=== PATIENT | male | born 1945 | race Caucasian/White ===

== ENCOUNTER 2017-02-28 08:15 | Emergency (ER) | payer MEDICARE, OTHER ==
[2017-02-28] MEDS ORDERED: ONDANSETRON HCL 4 MG/2 ML VIAL ONE (08:54)
[2017-02-28] MEDS ORDERED: KETOROLAC TROMETHAMINE 30 MG/ML VIAL ONE (08:54)
[2017-02-28 09:01] LABS: BASOPHIL# 0.1 X 10^3uL (0.0-0.1); BASOPHILS 0.5 % (0.0-2.0); EOSINOPHILS 1.1 % (0.0-6.0); EOSINOPHILS# 0.1 X 10^3uL (0.0-0.4); HEMATOCRIT 47.6 % (42.0-54.0); HEMOGLOBIN 16.3 g/dL (14.0-18.0); LYMPHOCYTES# 1.2 X 10^3uL (0.8-3.8); MEAN CELL VOLUME 87.1 fL (80.0-100.0); MEAN CORPUS. HGB CONCENTRATION 34.1 g/dL (32.0-36.0); MEAN CORPUSCULAR HEMOGLOBIN 29.7 pg (29.0-35.0); MEAN PLATELET VOLUME 8.4 fL (7.4-10.4); MONOCYTES 5.5 % (2.0-10.0); MONOCYTES# 0.6 X 10^3uL (0.2-1.0); NEUTROPHILS 81.9 % (54.0-75.0); NEUTROPHILS# 8.7 X 10^3uL (2.6-6.7); PLATELET COUNT 266 X 10^3uL (130-440); RED BLOOD COUNT 5.47 X 10^6uL (4.20-6.10); RED CELL DISTRIBUTION WIDTH 12.6 % (11.5-14.5); WHITE BLOOD COUNT 10.7 X 10^3uL (3.9-10.7)
[2017-02-28 09:10] LABS: A/G RATIO 1.3; ALBUMIN 4.3 g/dL (3.5-5.0); ALKALINE PHOSPHATASE 95 U/L (38-126); ALT 34 U/L (21-72); AST 28 U/L (17-59); BLOOD UREA NITROGEN 23 mg/dL (9-20); CALCIUM 9.8 mg/dL (8.4-10.2); CHLORIDE 104 mmol/L (98-107); EST GLOMERULAR FILTRATION RATE > 60 mL/min; GLUCOSE 130 mg/dL (70-100); POTASSIUM 4.6 mmol/L (3.5-5.1); SODIUM 144 mmol/L (137-145); TOTAL PROTEIN 7.7 g/dL (6.3-8.2)
--- NOTE | 2017-02-28 09:21 | CT REPORT ---
History: Left flank pain. Evaluate for calculus. Technique: Axial noncontrast 5mm CT scan images were obtained from the lung bases to the ischial tuberosities. Necessary coronal reformatted images were also acquired. This examination was performed using automat ed exposure control, adjustment of mA or kV according to patient size, and/or use of iterative recons truction technique. N.B.: Please note that this CT protocol is designed to evaluate patients with findings suspicious for acute obstructive uropathy. The exam does not use IV or oral contrast, and as such, provides only l imited evaluation of the soft tissue structures of the abdomen, pelvis, and retroperitoneum. If ther e is further clinical suspicion for pathological conditions beyond obstructive uropathy, especially i n a patient presenting with hematuria, a complete CT evaluation of the abdomen and pelvis using IV an d oral contrast is recommended. Findings: There is no prior study available for comparison. Current study shows findings consistent with acute left obstructive uropathy. There is moderate left hydronephrosis with left perinephric stranding and hydroureter. A 2 mm calculus is seen adjacent to t he left ureterovesical junction, best demonstrated on series 2 image 69. Left nephrolithiasis is also noted with a 5 mm calculus residing within the inferior collecting system. No abnormal calculi are s een within the right kidney or ureter. There is no pleural or pericardial effusion. Sliding-type hiatal hernia is noted. Postoperative goodrich e involves the gastroesophageal junction. Within the limits of a noncontrast enhanced exam, the liver , spleen, pancreas, gallbladder, and adrenal glands are anatomically normal. Bowel shows no obstructi on. There is no free fluid or drainable collection. Prostatic hypertrophy is noted. Retroperitoneum s hows mild aortic atherosclerotic disease without aneurysm. Osseous structures show normal alignment f or age with anterior osteophyte formation and facet arthropathy involving the lumbar spine. Impression: 1. Acute left obstructive uropathy secondary to 2 mm left ureterovesical junction calculus. 2. Left nephrolithiasis. Final Electronic Signature: This report was electronically signed by Nomi Rainey MD on 02/28/2017 9 :19 AM. shumes /
--- NOTE | 2017-02-28 10:50 | ER NURSING DOCUMENTATION ---
Nurse's Notes [facility] Name:Lenard Hatch Age:71 yrs Sex:Male :1945 Arrival Date:02/28/2017 Time:08:15 Bed5 Private MD:No PCP, Identified Diagnosis:Renal Colic- Acute Obstruction Presentation: 02/28 08:48 Acuity: VANESSA 2 lpr 09:25 Presenting complaint: Patient states: Flank pain. Transition of care: Home. Risk lp considerations: patient denies associated abdominal pain and neurologic symptoms. 09:25 Method Of Arrival: Private Vehicle lp Triage Assessment: 09:27 General: Appears in no apparent distress, Behavior is appropriate for age. Pain: lp Complains of pain in left low back and right low back Pain currently is 1 out of 10 on a pain scale. Musculoskeletal: Circulation, motion, and sensation intact Capillary refill < 3 seconds. Historical: - Allergies: No known drug Allergies; - Home Meds: 1. Remeron 15 mg oral tab 1 tab before bedtime - PMHx: KIDNEY STONES; hiatal hernia; KIDNEY STONES; diarrhea; insomnia; - PSHx: HERNIA REPAIR; renal stent; HERNIA REPAIR; L knee arthroscopy; - Tetanus: < 10 years. - Ebola Screening: : Patient negative for fever greater than or equal to 101.5 degrees Fahrenheit, and additional compatible Ebola Virus Disease symptoms. Patient denies exposure to infectious person. Patient denies travel to an Ebola-affected area in the 21 days before illness onset. . - Immunization history: Pneumococcal vaccine is up to date, Flu Vaccine < 1 year. - Social history: Smoking status: Patient states former smoker of tobacco. Screenin:28 Infectious Disease Risk None. Abuse screen: Denies threats or abuse. Denies injuries lp from another. Nutritional screening: No deficits noted. Assessment: 09:27 See Triage Assessment done by same RN. Neuro: No deficits noted. Level of Consciousness lp is awake, alert, Oriented to person, place, time, event, Clinical Pharmacologist are equal bilaterally Moves all extremities. Vital Signs: 08:18 Pulse Ox 100% ; lpr 08:21 BP 148 / 74 (auto/); Pulse 68; Resp 15; Temp 98.4(O); Pulse Ox 99% on R/A; Weight 72.57 lpr kg (R); Height 5 ft. 10 in. (177.80 cm) (R); 10:21 BP 89 / 77; Pulse 74; cb 10:23 BP 124 / 66; Pulse 87; cb 08:21 Body Mass Index 22.96 (72.57 kg, 177.80 cm) lpr ED Course: 08:17 Patient arrived in ED. ds 08:17 No PCP, Identified is Private Physician. ds 08:35 Inserted peripheral IV: 20 gauge in right forearm and blood collected. by Imtiaz Vallejo, lpr EMT-P. 08:42 Sharad Garcia MD is Attending Physician. tl1 08:47 Mikki Luna, RN is Primary Nurse. cb 08:48 Triage completed. lpr 08:[address] ms 09:28 Valuables Remains with patient Patient has correct armband on for positive lp identification. Placed in gown. Bed in low position. Call light in reach. Side rails up X 1. 10:06 Waldo Price MD is Referral Physician. tl1 Administered Medications: 09:10 Drug: Toradol 30 mg; Route: IVP; Site: right hand; lp 10:20 Follow up: Response: Pain is decreased lp 09:10 Drug: Zofran 8 mg; Route: IVP; Infused Over: 2 mins; Site: right hand; lp 10:20 Follow up: Response: Nausea is decreased lp Outcome: 10:03 Discharge ordered by . tl1 10:30 IV D/Isidoro cb 10:48 Discharged to home ambulatory. lp 10:48 Condition: good 10:48 Instructed on discharge instructions, follow up and referral plans. medication usage. 10:50 Patient left the ED. lp 03/01 09:32 Discharge F/U Call: Spoke with: patient. Are you having any pain? no. lp Signatures: Mikki Luna, An Moreno RN, cb, RN RN lp Srot, Sulema, Reg Reg mario Nelsy Heaton ms Yareli García RN RN lpr Sharad Garcia MD MD tl1
--- NOTE | 2017-03-02 10:50 | ER PHYSICIAN DOCUMENTATION ---
Physician Documentation [facility] Name:Lenard Hatch Age:71 yrs Sex:Male :1945 Arrival Date:02/28/2017 Time:08:15 Bed5 Private MD:No PCP, Identified ED RadhaSharad Disposition: 02/28 11:00 Chart complete. tl1 Disposition: 02/28/17 10:03 Discharged to Home/Self Care. Impression: Renal Colic- Acute Obstruction. - Condition is Good. - Discharge Instructions: KIDNEY STONE w/ Colic. - Prescriptions for [place] 7.5- 325 mg Oral Tablet - take 1 tablet by ORAL route every 6 hours As needed; 20 tablet. Flomax 0.4 mg Oral - take 1 capsule by ORAL route once daily 1/2 hour following the same meal each day; 10 capsule. Zofran 4 mg Oral Tablet - take 1-2 tablet by ORAL route every 4-6 hours As needed; 10 tablet. - Medical Reconciliation form form. - Follow up: Private Physician; When: 7 - 10 days; Reason: Recheck today's complaints, Continuance of care. Follow up: Waldo Price MD; When: 7 - 10 days; Reason: Recheck today's complaints. - Problem is new. - Symptoms have improved. - Notes: OK to take Aleve 1-2 tabs 2-3 times a day for your flank pain. HPI: 08:30 This 71 yrs old Male presents to ER via Private Vehicle with complaints of tl1 Left flank Pain. 08:30 The patient presents with pain that is acute. The symptoms are located in the left mid tl1 back. Onset: The symptoms/episode began/occurred suddenly, this morning. The pain radiates to the left femoral area. Associated signs and symptoms: Pertinent positives: nausea, vomiting, Pertinent negatives: hematuria, incontinence. The problem was sustained. The patient has experienced a previous episode, approximately 2 years ago. Historical: - Allergies: No known drug Allergies; - Home Meds: 1. Remeron 15 mg oral tab 1 tab before bedtime - PMHx: KIDNEY STONES; hiatal hernia; KIDNEY STONES; diarrhea; insomnia; - PSHx: HERNIA REPAIR; renal stent; HERNIA REPAIR; L knee arthroscopy; - Tetanus: < 10 years. - Ebola Screening: : Patient negative for fever greater than or equal to 101.5 degrees Fahrenheit, and additional compatible Ebola Virus Disease symptoms. Patient denies exposure to infectious person. Patient denies travel to an Ebola-affected area in the 21 days before illness onset. . - Immunization history: Pneumococcal vaccine is up to date, Flu Vaccine < 1 year. - Social history: Smoking status: Patient states former smoker of tobacco. ROS: 08:40 Back: Positive for pain at rest. tl1 08:40 All other systems are negative. Exam: 08:40 Constitutional: The patient appears alert, awake, well developed, well hydrated, well tl1 groomed, well nourished, in obvious distress, moderately distressed, obviously ill, restless, uncomfortable, retching repeatedly 08:40 Head/Face: Normocephalic, atraumatic. tl1 Cardiovascular: Regular rate and rhythm with a normal S1 and S2. No gallops, murmurs, or rubs. Normal PMI, no JVD. No pulse deficits. Respiratory: Lungs have equal breath sounds bilaterally, clear to auscultation and percussion. No rales, rhonchi or wheezes noted. No increased work of breathing, no retractions or nasal flaring. 08:40 Abdomen/GI: Soft, non-tender, with normal bowel sounds. No distension or tympany. No tl1 guarding or rebound. No evidence of tenderness throughout. 08:40 Back: pain, that is severe, ROM is normal, CVA tenderness, is noted on the left, vertebral tenderness, is not appreciated, muscle spasm, is not present. 08:40 Musculoskeletal/extremity: Exam is negative for acute changes. 08:40 Skin: Exam negative for acute changes. 08:40 Neuro: Orientation: is normal, Mentation: is normal, Cranial nerves: grossly normal, Cerebellar function: Motor: moves all fours. Vital Signs: 08:18 Pulse Ox 100% ; lpr 08:21 BP 148 / 74 (auto/); Pulse 68; Resp 15; Temp 98.4(O); Pulse Ox 99% on R/A; Weight 72.57 lpr kg (R); Height 5 ft. 10 in. (177.80 cm) (R); 10:21 BP 89 / 77; Pulse 74; cb 10:23 BP 124 / 66; Pulse 87; cb 08:21 Body Mass Index 22.96 (72.57 kg, 177.80 cm) lpr MDM: 08:17 Patient medically screened. tl1 09:30 Differential diagnosis: Abdominal Aortic Aneurysm Fatigue Pyelonephritis Renal tl1 Infarction renal colic. Data reviewed: vital signs, nurses notes, lab test result(s), CBC, electrolytes, hepatic panel, urinalysis, radiologic studies, CT scan, and as a result, I will discharge patient. Counseling: I had a detailed discussion with the patient and/or guardian regarding: the historical points, exam findings, and any diagnostic results supporting the discharge/admit diagnosis, lab results, radiology results, the need for outpatient follow up, to return to the emergency department if symptoms worsen or persist or if there are any questions or concerns that arise at home. Medication response: The patient's symptoms have improved, Response to treatment: the patient's symptoms have markedly improved after treatment, and as a result, I will discharge patient. 02/28 09:14 Order name: CBC AUTO DIF, MDIF/RMOR IF IND; Complete Time: 16:40 EDMS 02/28 16:39 Interpretation: WHITE BLOOD COUNT 10.7; HEMOGLOBIN 16.3; HEMATOCRIT 47.6; PLATELET tl1 COUNT 266; NEUTROPHILS 81.9; LYMPHOCYTES 11.0. 02/28 09:24 Order name: COMPREHENSIVE METABOLIC PANEL; Complete Time: 16:40 EDMS 02/28 16:39 Interpretation: SODIUM 144; POTASSIUM 4.6; CHLORIDE 104; CARBON DIOXIDE 26; GLUCOSE tl1 130; BLOOD UREA NITROGEN 23; CREATININE 1.2; EST GLOMERULAR FILTRATION RATE > 60; CALCIUM 9.8; ALBUMIN 4.3. 02/28 09:23 Order name: CAT SCAN; ABD/[place] [id number]; Complete Time: 16:40 EDMS Dispensed Medications: 09:10 Drug: Toradol 30 mg; Route: IVP; Site: right hand; lp 10:20 Follow up: Response: Pain is decreased lp 09:10 Drug: Zofran 8 mg; Route: IVP; Infused Over: 2 mins; Site: right hand; lp 10:20 Follow up: Response: Nausea is decreased lp Signatures: Mikki Luna RN RN cb An Wilder RN RN lp Roberts, Leslie, RN RN lpr Leigh, Tom, MD MD tl1
== END 2017-02-28 10:50 | disposition home or self-care (01) ==
LOC: ER 08:15
DX: N20.2 Calculus of kidney with calculus of ureter (principal); N23 Unspecified renal colic; N13.2 Hydronephrosis with renal and ureteral calculous obstruction; R11.10 Vomiting, unspecified; Z87.442 Personal history of urinary calculi; Z79.899 Other long term (current) drug therapy
CPT/HCPCS: 74176; 80053; 85025; 96374; 96375; 99284; J1885; J2405